=== PATIENT | female | born 1990 | race African-American/Black ===

== ENCOUNTER 2019-08-20 16:30 | Emergency (ER) | payer OTHER ==
[~2019-08-20] VITALS: Ht 167.6 cm; Wt 72.6 kg
[2019-08-20 17:01] VITALS: BP 149/104
== END 2019-08-21 01:06 | disposition left against medical advice (07) ==
LOC: ER 16:30
DX: R51 Headache (principal); Z53.21 Procedure and treatment not carried out due to patient leaving prior to being seen by health care provider

== ENCOUNTER 2019-10-05 07:46 | Emergency (ER) | payer OTHER ==
[~2019-10-05] VITALS: Ht 167.6 cm; Wt 68.0 kg
[2019-10-05 07:55] VITALS: BP 135/93
[2019-10-05] MEDS ORDERED: IBUPROFEN 800 MG TAB PO ONE (08:30)
== END 2019-10-05 08:54 | disposition home or self-care (01) ==
LOC: ER 07:46
DX: H10.32 Unspecified acute conjunctivitis, left eye (principal); G43.909 Migraine, unspecified, not intractable, without status migrainosus